=== PATIENT | male | born 1960 | race Caucasian/White ===

== ENCOUNTER 2024-05-16 07:19 | Day surgery (SDC) | payer OTHER ==
[2024-05-14 10:05] VITALS: BMI 30.1
--- NOTE | 2024-05-15 11:35 | P.GSHP ---
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 Tropic is very difficult due to the curvature a. He does not have painful erections. He does not have any significant urinary issues. He was evaluated and found to have due to dorsal plaques. The curvature is dorsally because of this. Due to the inability to penetrate and perform intercourse he comes for surgical straightening with Stevan plication. The risks and complications including persistent curvature pain lack of satisfaction impotence of been explained and understood and accepted. - Constitutional Constitutional: Denies chills, Denies fever - EENT Eyes: denies blurred vision, denies pain Ears, nose, mouth and throat: Denies headache, Denies sore throat - Cardiovascular Cardiovascular: Denies chest pain, Denies shortness of breath - Respiratory Respiratory: Denies cough, Denies 7 - Gastrointestinal Gastrointestinal: Denies abdominal pain, Denies diarrhea, Denies nausea, Denies vomiting - Genitourinary (Female) Genitourinary: Denies dysuria, Denies hematuria - Genitourinary (Male) Genitourinary: Denies dysuria, Denies hematuria - Musculoskeletal Musculoskeletal: Denies myalgias - Integumentary Integumentary: Denies pruritus, Denies rash - Neurological Neurological: Denies numbness, Denies weakness - Psychiatric Psychiatric: Denies anxiety, Denies depression - Endocrine Endocrine: Denies fatigue, Denies weight change Past Medical History Additional Past Medical History / Comment(s): ENVIRONMENTAL ALLERGIES. PEYRONIE'S DISEASE History of Any Multi-Drug Resistant Organisms: None Reported Past Surgical History: Appendectomy Additional Past Surgical History / Comment(s): LT TEAR DUCT PROCEDURE Past Anesthesia/Blood Transfusion Reactions: No Reported Reaction Smoking Status: Former smoker - Past Family History Father Family Medical History: Cancer Medications and Allergies Home Medications Medication Instructions Recorded Confirmed Type No Known Home Medications 05/14/24 05/14/24 History Allergies Allergy/AdvReac Type Severity Reaction Status Date / Time ENVIRONMENTAL ALLERGIES Allergy Unknown Uncoded 05/14/24 09:56 Surgical - Exam - General well developed, well nourished, no distress - Eyes normal ocular movement, no icteric - ENT no hearing loss, no congestion - Neck no masses, trachea midline - Respiratory normal respiratory effort, clear to auscultation - Abdomen Abdomen: soft, non tender, no guarding, no rigid, no rebound - Genitourinary dorsal penile plaques[peyronies disease] - Integumentary no rash, no abnormal pigmentation - Neurologic no disoriented, no combative - Psychiatric oriented to time, oriented to person, oriented to place, speech is normal, memory intact Assessment and Plan Assessment: Impression: Peyronie's disease causing penile curvature Recommendations: Nishi penile plication
[~2024-05-16 07:19] MED LIST: HYDROmorphone 0.5 MG/0.5 ML SYRINGE IVP PRN; Pre Op ABX Message 1 EACH MISC MISCELLANE ONE
[2024-05-16] MEDS: LIDOCAINE 1% (10MG/ML) FOR IV START INTRADERMA STA (08:05)
[2024-05-16] MEDS: IV FLUID CONTINUATION 1,000 ML IV ONE ×2 (08:05→11:35)
[2024-05-16] MEDS: LACTATED RINGERS 1,000 ML IV SCH (08:05)
[2024-05-16] MEDS: ONDANSETRON 4 MG/2 ML VIAL IVP ONE (08:20)
[2024-05-16] MEDS: DEXAMETHASONE SOD PHOSPHATE 4 MG/ML 1 ML VIAL IV ONE (08:20)
[2024-05-16 08:41] LABS: Basophils # (A) 0.1 k/uL (0-0.2); Basophils % (A) 1 %; Eosinophils # (A) 0.2 k/uL (0-0.7); Eosinophils % (A) 3 %; HCT 46.7 % (39.0-53.0); Lymphocytes # (A) 1.6 k/uL (1.0-4.8); Lymphocytes % (A) 25 %; MCH 31.2 pg (25.0-35.0); MCHC 34.2 g/dL (31.0-37.0); MCV 91.2 fL (80.0-100.0); Mean Platelet Volume 7.6; Monocytes # (A) 0.5 k/uL (0-1.0); Monocytes % (A) 8 %; Neutrophils # (A) 3.8 k/uL (1.3-7.7); Neutrophils % (A) 60 %; Platelet Count 170 k/uL (150-450); RBC 5.13 m/uL (4.30-5.90); RDW 12.4 % (11.5-15.5); WBC 6.3 k/uL (3.8-10.6)
[2024-05-16 09:01] LABS: ALT 45 U/L (4-49); AST 37 U/L (17-59); African American GFR (CKD) >90 (>60 ml/min/1.73 sqM); Albumin 4.8 g/dL (3.5-5.0); Alkaline Phosphatase 65 U/L (38-126); Anion Gap 9 mmol/L; Blood Urea Nitrogen 13 mg/dL (9-20); Calcium 9.4 mg/dL (8.4-10.2); Carbon Dioxide 24 mmol/L (22-30); Chloride 106 mmol/L (98-107); Glucose 109 mg/dL (74-99); Non-African American GFR(CKD) 84 (>60 ml/min/1.73 sqM); Potassium 4.5 mmol/L (3.5-5.1); Sodium 139 mmol/L (137-145); Total Protein 6.8 g/dL (6.3-8.2)
[2024-05-16] MEDS ORDERED: fentaNYL (PF) 50 MCG/ML 2 ML AMP ONE (09:20)
[2024-05-16] MEDS ORDERED: SUCCINYLCHOLINE CHLORIDE 200 MG/10 ML VIAL IV ONE (09:20)
[2024-05-16] MEDS ORDERED: MIDAZOLAM 2 MG/2 ML VIAL ONE (09:20)
[2024-05-16] MEDS ORDERED: PROPOFOL 10 MG/ML 20 ML VIAL IV ONE (09:20)
[2024-05-16] MEDS ORDERED: LIDOCAINE 1% INJ 10MG/ML (20 ML MDV) ONE (09:20)
[2024-05-16] MEDS ORDERED: PHENYLEPHRINE-0.9% NACL SYG 1,000 MCG/10 ML SYRINGE ONE (09:20)
[2024-05-16] MEDS: BUPIVACAINE (PF) 0.5% 30 ML VIAL SQ ONE ×2 (09:43)
[2024-05-16] MEDS: BACITRACIN OINT 1 EACH PACKET TOPICAL ONE (10:34)
--- NOTE | 2024-05-16 10:48 | P.OP ---
Date of Procedure: 05/16/24 Preoperative Diagnosis: Peyronie's disease with penile curvature Postoperative Diagnosis: same Procedure(s) Performed: Silex penile plication Anesthesia: PRISCILA Surgeon: Virgil Connor Estimated Blood Loss (ml): 50 Pathology: none sent Indications for Procedure: the patient is 63. He has dorsal penile curvature causing inability to have intercourse. He is failed xiaflex.he was seen by me and given treatment options including excision, implant or Stevan plication. He come from the plication. The risks and complications including pain failure to correct curvature impotence infection bleeding among others have been explained and understood and accepted. Description of Procedure: patient brought to the operating suite. He is given a general anesthetic. Prepped and draped sterilely. A subcoronal circumcision incision is made. The shaft of the penis is degloved. I then place a tourniquet around the base of the penis. I used an 18-gauge needle and injected sterile saline to create an erection. The dorsal curvature as noted. In the ventral aspect of the penis on both sides of the urethra three paired markings are made for the corporal incisions.I then make a vertical incisions in the corpora. The corporotomies are then closed horizontally with 3-0 Vicryl. This is done bilaterally. I then re-created the erection with saline and the penis has straightened. 2 or 3 more stitches are placed to control any leakage from the corporotomies. Any bleeding is controlled electrocautery. I then using 3-0 chromic cover the stitches on the shaft of the skin. I then closed the circumcision with 2 running 4-0 chromic's. I then used 10 mL of half percent plain Marcaine for a penile block. The patient is awakened and returned recovery room good condition. Blood loss is approximately 50 mL.
[2024-05-16 10:53] VITALS: TEMP 96.7
[2024-05-16 11:15] VITALS: RESP 18
[2024-05-16 11:24] VITALS: PULSE 56
[2024-05-16 12:12] VITALS: BP 133/80
== END 2024-05-16 12:31 | disposition home or self-care (01) ==
LOC: OR 07:19
PROVIDERS: ATTEND Urology
DX: N48.6 Induration penis plastica (principal); Z87.891 Personal history of nicotine dependence; Z90.49 Acquired absence of other specified parts of digestive tract
CPT/HCPCS: 80053; 85025; 54360; J2250; J0330; J1100; J2405; J2003; J3010; J2704; J2371; J0665